=== PATIENT | female | born 1985 | race Caucasian/White ===

== ENCOUNTER 2021-05-03 13:50 | Observation (INO) | payer MEDICAID ==
[~2021-05-03] VITALS: Ht 162.6 cm; Wt 97.5 kg
== END 2021-05-03 16:05 | disposition home or self-care (01) ==
LOC: SPU 13:50
PROVIDERS: ADMIT Obstetrics & Gynecology; ATTEND Obstetrics & Gynecology
DX: O62.9 Abnormality of forces of labor, unspecified (principal); Z3A.40 40 weeks gestation of pregnancy
CPT/HCPCS: 59025; 81002; G0378

== ENCOUNTER 2021-05-04 05:45 | Inpatient (IN) | payer MEDICAID, SELFPAY ==
[~2021-05-04] VITALS: Ht 165.1 cm; Wt 97.5 kg
[2021-05-04] MEDS ORDERED: NALBUPHINE HCL 10 MG/ML AMP IVP PRN (06:30)
[2021-05-04] MEDS ORDERED: LR 1,000 ML IV SCH (06:30)
[2021-05-04] MEDS ORDERED: TERBUTALINE SULFATE 1 MG/ML VIAL SUBCUT ONE (06:30)
[2021-05-04] MEDS ORDERED: OXYTOCIN/0.9 % SODIUM CHLORIDE 1,000 ML IV SCH (06:30)
[2021-05-04 06:58] VITALS: BP_SYST 137
[2021-05-04 07:05] LABS: BASOPHILS # (AUTO) 0.2 K/uL (0.0-0.2); BASOPHILS % (AUTO) 1.4 % (0.0-2.0); EOSINOPHILS # (AUTO) 0.1 K/uL (0.0-0.4); EOSINOPHILS % (AUTO) 0.5 % (0.0-4.0); HEMATOCRIT 36.9 % (36-48); HEMOGLOBIN 12.2 g/dL (12.0-16.0); LYMPHOCYTES # (AUTO) 0.7 K/uL (1.0-5.5); LYMPHOCYTES % (AUTO) 5.7 % (20.5-51.5); MEAN CORPUSCULAR HEMOGLOBIN 32 pg (27-31); MEAN CORPUSCULAR HGB CONC 33 % (32-36); MEAN CORPUSCULAR VOLUME 98 fL (79.0-98.0); MONOCYTES # (AUTO) 0.3 K/uL (0.0-1.0); MONOCYTES % (AUTO) 2.4 % (1.7-9.3); NEUTROPHILS # (AUTO) 10.9 K/uL (1.8-7.7); PLATELET COUNT (AUTO) 258 K/uL (130-430); RED BLOOD CELL COUNT(AUTO) 3.77 MIL/uL (4.2-6.2); WHITE BLOOD COUNT (AUTO) 12.1 K/uL (4.8-10.8)
[2021-05-04] MEDS ORDERED: HYDROcodone/ACETAMIN 5-325 MG TAB (NORCO/ VICODIN) PO PRN (08:45)
[2021-05-04] MEDS ORDERED: OXYCODONE/ACETAMINOPHEN 5-325 TABLET PO PRN ×2 (08:45)
[2021-05-04] MEDS ORDERED: OXYTOCIN/0.9 % SODIUM CHLORIDE 1,000 ML IV ONE (11:45)
[2021-05-04] MEDS: IBUPROFEN 600 MG TABLET PO SCH ×3 (12:29→23:46)
[2021-05-04] MEDS ORDERED: DERMOPLAST SPRAY TP PRN (23:45)
[2021-05-04] MEDS ORDERED: WITCH HAZEL LEAF 1 MED.PAD MED.PAD TP PRN (23:45)
[2021-05-05] MEDS: IBUPROFEN 600 MG TABLET PO SCH ×4 (05:53→23:39)
[2021-05-05 07:12] LABS: HEMATOCRIT 31.3 % (36-48); HEMOGLOBIN 10.5 g/dL (12.0-16.0)
[2021-05-06] MEDS: IBUPROFEN 600 MG TABLET PO SCH ×3 (06:09→19:42)
== END 2021-05-06 21:50 | disposition home or self-care (01) | DRG 560 ==
LOC: SPU 05:45
PROVIDERS: ADMIT Obstetrics & Gynecology; ATTEND Obstetrics & Gynecology
PROC: 10E0XZZ Delivery of Products of Conception, External Approach (ICD-10-PCS; principal; 2021-05-04)
DX: O69.81X0 Labor and delivery complicated by cord around neck, without compression, not applicable or unspecified (principal); Z20.822 Contact with and (suspected) exposure to COVID-19; Z37.0 Single live birth; Z3A.40 40 weeks gestation of pregnancy
CPT/HCPCS: 36415; 81002; 85018; 85025; 86592; 86886; 86900; 86901; J2300; J2590